=== PATIENT | male | born 1990 | race Caucasian/White ===

== ENCOUNTER 2016-05-31 12:14 | Emergency (ER) | payer SELFPAY ==
[~2016-05-31] VITALS: Ht 165.1 cm; Wt 74.6 kg
[~2016-05-31 12:14] MED LIST: ERYT1O EACH EYE; HYDR-3533 PO; IBUP800T23 PO
[2016-05-31 12:20] VITALS: BP 135/94; PULSE 104; RESP 16; TEMP 98.1; O2SAT 99
== END 2016-05-31 13:50 | disposition left against medical advice (07) ==
LOC: PHED 12:14
DX: R42 Dizziness and giddiness (principal); R50.9 Fever, unspecified; Z53.21 Procedure and treatment not carried out due to patient leaving prior to being seen by health care provider
CPT/HCPCS: 99281

== ENCOUNTER 2016-09-22 15:07 | Emergency (ER) | payer SELFPAY ==
[~2016-09-22] VITALS: Ht 167.6 cm; Wt 80.2 kg
[2016-09-22 15:11] VITALS: BP 107/73; PULSE 104; RESP 16; TEMP 99.5; O2SAT 97
[2016-09-22] MEDS ORDERED: IBUPROFEN 600 MG TAB PO ONE (15:30)
[2016-09-22] MEDS ORDERED: ACETAMINOPHEN 500 MG CPLT PO ONE (15:30)
--- NOTE | 2016-09-22 15:43 | PD ---
HPI Chief Complaint: Headache Time Seen by Provider: 15:20 Travel History International Travel<30 days: No Contact w/Intl Traveler<30days: No Traveled to known affect area: No History of Present Illness HPI This 26-year-old male is complaining of headache. He says he been having headache for the last 3 days. Pain is in both eyes and in the occipital area. He says he been feeling very tired the last day or so. He says he is not generally prone to headaches. He has not had a sore throat or cough. There's been no diarrhea. He has a history of IV drug use and has hepatitis C. He says that he had similar headaches he was first diagnosed with hepatitis C. He is on Suboxone and says he took 4 mg tablet earlier today. He says he takes on an as-needed basis. He says he has not had IV drugs for 3 months. He does not have any numbness or tingling PFSH Past Medical History Hepatitis: Yes (HEP C) Past Surgical History Other Surgery: Yes (left arm r/t injury) Social History Alcohol Use: Yes (RARELY) Tobacco Use: No Substance Use: Yes (iv drug abuse herion, dilaudid) Allergies-Medications (Allergen,Severity, Reaction): Coded Allergies: Penicillin (Verified Allergy, Intermediate, rash, 09/22/16) Reported Meds & Prescriptions Reported Meds & Active Scripts Active Ibuprofen 800 Mg Tab 800 Mg PO TID PRN Lortab 5 mg/325 mg (Hydrocodone/Acetaminophen 5 mg/325 mg) 1 Tab 1 Tab PO Q4H PRN Erythromycin Opht 0.5% Oint (Erythromycin) 0.5 % Oint 1 Applic EACH EYE QID 7 Days Instill 1/2 inch Review of Systems General / Constitutional: No: Fever, Chills Eyes: No: Diploplia HENT: Positive: Headaches, No: Lightheadedness Cardiovascular: No: Chest Pain or Discomfort, Palpitations Respiratory: No: Cough, Shortness of Breath Gastrointestinal: No: Nausea, Vomiting Genitourinary: No: Frequency, Dysuria Musculoskeletal: No: Myalgias Skin: No Rash, No Itching Neurologic: Positive: Weakness, No: Syncope, Focal Abnormalities Endocrine: No: Heat Intolerance, Cold Intolerance Hematologic/Lymphatic: No: Easy Bruising Physical Exam Narrative GENERAL: Well-developed male SKIN: Focused skin assessment warm/dry. HEAD: Atraumatic. Normocephalic. EYES: Pupils equal and round. No scleral icterus. No injection or drainage. ENT: No nasal bleeding or discharge. Mucous membranes pink and moist. NECK: Trachea midline. No JVD. CARDIOVASCULAR: Regular rate and rhythm. No murmur appreciated. RESPIRATORY: No accessory muscle use. Clear to auscultation. Breath sounds equal bilaterally. GASTROINTESTINAL: Abdomen soft, non-tender, nondistended. Hepatic and splenic margins not palpable. MUSCULOSKELETAL: No obvious deformities. No clubbing. No cyanosis. No edema. NEUROLOGICAL: Awake and alert. No obvious cranial nerve deficits. Motor grossly within normal limits. Normal speech. PSYCHIATRIC: Appropriate mood and affect; insight and judgment normal. Data Data Last Documented VS Vital Signs Date Time Temp Pulse Resp B/P Pulse Ox O2 Delivery O2 Flow Rate FiO2 09/22/16 15:29 16 100 Room Air 09/22/16 15:11 99.5 104 107/73 Orders Complete Blood Count With Diff (09/22/16 15:29) Comprehensive Metabolic Panel (09/22/16 15:29) Ct Brain W/O Iv Contrast(Rout) (09/22/16 15:29) Acetaminophen (Tylenol) (09/22/16 15:30) Ibuprofen (Motrin) (09/22/16 15:30) MDM Medical Decision Making Medical Screen Exam Complete: Yes Emergency Medical Condition: Yes Medical Record Reviewed: Yes Differential Diagnosis Differential includes hepatitis, tumor, Narrative Course CT of the brain has been read as negative. Lab work is pending. Diagnosis Primary Impression: Headache Tyson Hernandez MD Sep 22, 2016 15:43
--- NOTE | 2016-09-22 15:56 | RADHPO ---
EXAM DATE/TIME: 09/22/2016 15:35 [facility] COMPARISON: CT BRAIN W/O CONTRAST, June 14, 2015, 15:01. INDICATIONS : Cephalgia. RADIATION DOSE: 65.80 CTDIvol (mGy) MEDICAL HISTORY : Hepatitis C. SURGICAL HISTORY : None. ENCOUNTER: Initial ACUITY: 3 days PAIN SCALE: 10/10 LOCATION: Right cranial TECHNIQUE: Multiple contiguous axial images were obtained of the head. Using automated exposure control and adj ustment of the mA and/or kV according to patient size, radiation dose was kept as low as reasonably a chievable to obtain optimal diagnostic quality images. FINDINGS: CEREBRUM: The ventricles are normal for age. No evidence of midline shift, mass lesion, hemorrhage or acute in farction. No extra-axial fluid collections are seen. POSTERIOR FOSSA: The cerebellum and brainstem are intact. The 4th ventricle is midline. The cerebellopontine angle i s unremarkable. EXTRACRANIAL: The visualized portion of the orbits is intact. SKULL: The calvaria is intact. No evidence of skull fracture. CONCLUSION: 1. No evidence of acute intracranial pathology. No masses are identified. Nabeel Tapia MD on September 22, 2016 at 15:53 Board Certified Radiologist. This report was verified electronically.
[2016-09-22 16:06] LABS: AUTOMATED NEUTROPHIL # 3.4 TH/MM3 (1.8-7.7); BASOPHIL % 0.8 % (0.0-2.0); EOSINOPHIL # 0.2 TH/MM3 (0-0.4); EOSINOPHIL % 4.3 % (0.0-4.0); HEMATOCRIT 44.6 % (39.0-51.0); HEMO FLAGS DIFF FINAL; LYMPH % 26.2 % (9.0-44.0); LYMPHOCYTE # 1.4 TH/MM3 (1.0-4.8); MEAN CELL VOLUME 88.1 FL (80.0-100.0); MEAN CORPUSCULAR HGB CONC 34.1 % (32.0-36.0); MONO % 9.7 % (0.0-8.0); PLATELET COUNT 241 TH/MM3 (150-450); RED BLOOD COUNT 5.06 MIL/MM3 (4.50-5.90); RED CELL DISTRIBUTION WIDTH 11.8 % (11.6-17.2); WHITE BLOOD COUNT 5.5 TH/MM3 (4.0-11.0)
--- NOTE | 2016-09-22 16:11 | PD ---
Physical Exam Narrative Patient was seen by ED physician and signed out to me. Data Data Last Documented VS Vital Signs Date Time Temp Pulse Resp B/P Pulse Ox O2 Delivery O2 Flow Rate FiO2 09/22/16 16:31 Room Air 09/22/16 16:31 101 16 101/64 100 09/22/16 15:11 99.5 Orders Complete Blood Count With Diff (09/22/16 15:29) Comprehensive Metabolic Panel (09/22/16 15:29) Ct Brain W/O Iv Contrast(Rout) (09/22/16 15:29) Acetaminophen (Tylenol) (09/22/16 15:30) Ibuprofen (Motrin) (09/22/16 15:30) Labs Laboratory Tests Test 09/22/16 15:59 White Blood Count 5.5 TH/MM3 Red Blood Count 5.06 MIL/MM3 Hemoglobin 15.2 GM/DL Hematocrit 44.6 % Mean Corpuscular Volume 88.1 FL Mean Corpuscular Hemoglobin 30.0 PG Mean Corpuscular Hemoglobin 34.1 % Concent Red Cell Distribution Width 11.8 % Platelet Count 241 TH/MM3 Mean Platelet Volume 8.0 FL Neutrophils (%) (Auto) 59.0 % Lymphocytes (%) (Auto) 26.2 % Monocytes (%) (Auto) 9.7 % Eosinophils (%) (Auto) 4.3 % Basophils (%) (Auto) 0.8 % Neutrophils # (Auto) 3.4 TH/MM3 Lymphocytes # (Auto) 1.4 TH/MM3 Monocytes # (Auto) 0.5 TH/MM3 Eosinophils # (Auto) 0.2 TH/MM3 Basophils # (Auto) 0.0 TH/MM3 CBC Comment DIFF FINAL Differential Comment Sodium Level 137 MEQ/L Potassium Level 4.4 MEQ/L Chloride Level 101 MEQ/L Carbon Dioxide Level 29.7 MEQ/L Anion Gap 6 MEQ/L Blood Urea Nitrogen 8 MG/DL Creatinine 0.95 MG/DL Estimat Glomerular Filtration 94 ML/MIN Rate Random Glucose 104 MG/DL Calcium Level 8.8 MG/DL Total Bilirubin 0.6 MG/DL Aspartate Amino Transf 86 U/L (AST/SGOT) Alanine Aminotransferase 183 U/L (ALT/SGPT) Alkaline Phosphatase 87 U/L Total Protein 7.2 GM/DL Albumin 3.8 GM/DL MDM Supervised Visit with ANDRE: No Interpretation(s) Last Impressions Head CT 09/22/16 1529 Signed Impressions: Service Date/Time: August 15:35 - CONCLUSION: 1. No evidence of acute intracranial pathology. No masses are identified. Nabeel Tapia MD 16:10 PM. CBC within normal limit. 1628 PM. CMP within normal limit. AST 86. ALT 183. Narrative Course Patient was seen by ED physician signed out to me. Patient has history of IV drug abuse. Last IV drug abuse was with IV Suboxone a week ago. Patient denies any fever at home. Patient states that he has aching headache is diffuse over the head for the past 3 days. Patient complains of nausea today. Patient has history of migraine. Patient has history of hepatitis C. Patient denies any photophobia. Patient denies any neck stiffness. Patient denies any chest pain or shortness of breath. Patient denies abdominal pain. Patient denies any focal weakness or numbness of extremity. CT scan of brain negative acute pathology. CBC CMP within normal limit except for mildly elevated LFTs. Toradol 30 mg IV. Compazine 10 mg IV. Benadryl 25 mg IV. Patient will be discharged to follow-up with local physician. Diagnosis Primary Impression: Cephalgia Qualified Code: R51 - Nonintractable episodic headache, unspecified headache type Additional Impression: Hepatitis C infection Qualified Code: B18.2 - Chronic hepatitis C without hepatic coma Patient Instructions: General Instructions Additional Instruction: Fioricet as needed for headache. Zofran as needed for nausea. Follow-up with personal physician. Return if persistent problem or worse. Return immediately if increasing headache, stiff neck, fever, persistent vomiting. Med/Other Pt SpecificInfo: Prescription(s) given Scripts Ondansetron Odt (Zofran Odt)4 Mg Tab4 Mg SL Q6HR PRN (Nausea/Vomiting) #10 TAB Ref 0 Prov:Pritesh Self MD 09/22/16 Nwzasjfbsn-Hrropgskdozng-Wexhdeqg (Fioricet)50-300-40 Mg Cap1-2 Cap PO Q6H PRN ( HEADACHE) #20 CAP Ref 0 Prov:Pritesh Self MD 09/22/16 Disposition: 01 DISCHARGE HOME Condition: Stable Pritesh Self MD Sep 22, 2016 16:11
[2016-09-22 16:14] LABS: CHLORIDE 101 MEQ/L (98-107); POTASSIUM 4.4 MEQ/L (3.5-5.1); SODIUM (NA) 137 MEQ/L (136-145)
[2016-09-22 16:18] LABS: ANION GAP 6 MEQ/L (5-15); BICARBONATE 29.7 MEQ/L (21.0-32.0); BLOOD UREA NITROGEN 8 MG/DL (7-18)
[2016-09-22 16:21] LABS: ALT (GPT) 183 U/L (12-78); AST (GOT) 86 U/L (15-37); GLOMERULAR FILTRATION RATE 94 ML/MIN (>89)
[2016-09-22 16:23] LABS: TOTAL BILIRUBIN ADULT 0.6 MG/DL (0.2-1.0)
[2016-09-22 16:24] LABS: ALKALINE PHOSPHATASE 87 U/L (45-117)
[2016-09-22 16:31] VITALS: BP 101/64; PULSE 101; RESP 16; O2SAT 100
[2016-09-22] MEDS ORDERED: ZOFR4TAB3 SL (16:49)
[2016-09-22] MEDS ORDERED: BUTA1CAP PO (16:49)
[2016-09-22] MEDS ORDERED: KETOROLAC TROMETHAMINE 30 MG/ML (IVP) VIAL IV PUSH ONE (17:00)
[2016-09-22] MEDS ORDERED: diphenhydrAMINE HCL 50 MG/ML VIAL IV PUSH ONE (17:00)
[2016-09-22] MEDS ORDERED: PROCHLORPERAZINE INJ 10 MG/2 ML VIAL IV PUSH ONE (17:00)
== END 2016-09-22 17:33 | disposition home or self-care (01) ==
LOC: PHED 15:07
DX: R51 Headache (principal); B19.20 Unspecified viral hepatitis C without hepatic coma; F11.90 Opioid use, unspecified, uncomplicated
CPT/HCPCS: 70450; 80053; 85025; 96374; 96375; 99284; J0780; J1200; J1885

== ENCOUNTER 2016-09-28 12:36 | Emergency (ER) | payer SELFPAY ==
[~2016-09-28] VITALS: Ht 167.6 cm; Wt 75.0 kg
[~2016-09-28 12:36] MED LIST changes: +BUTA1CAP PO; +ZOFR4TAB3 SL
[2016-09-28 13:12] VITALS: BP 134/69; PULSE 71; RESP 16; TEMP 98; O2SAT 97
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
[2016-09-28] MEDS ORDERED: BACITRACIN TOP OINT 15 GM TUBE TOPICAL ONE (13:15)
[2016-09-28] MEDS ORDERED: IBUPROFEN 600 MG TAB PO ONE (13:15)
[2016-09-28 14:24] VITALS: RESP 17
== END 2016-09-28 15:10 | disposition home or self-care (01) ==
LOC: NEPD 12:36
DX: S90.02XA Contusion of left ankle, initial encounter (principal); S90.812A Abrasion, left foot, initial encounter; S80.212A Abrasion, left knee, initial encounter; S60.512A Abrasion of left hand, initial encounter; S60.414A Abrasion of right ring finger, initial encounter; V29.88XA Motorcycle rider (driver) (passenger) injured in other specified transport accidents, initial encounter; Z86.19 Personal history of other infectious and parasitic diseases
CPT/HCPCS: 99284

== ENCOUNTER 2017-02-24 14:21 | Emergency (ER) | payer SELFPAY ==
[~2017-02-24] VITALS: Ht 165.1 cm; Wt 77.0 kg
[2017-02-24 14:27] VITALS: BP 129/82; PULSE 107; RESP 16; TEMP 98.9; O2SAT 97
--- NOTE | 2017-02-24 14:40 | PD ---
HPI Chief Complaint: Cold / Flu Symptoms Time Seen by Provider: 14:35 Travel History International Travel<30 days: No Contact w/Intl Traveler<30days: No Traveled to known affect area: No History of Present Illness HPI This is a 26-year-old male with history of hepatitis C, remote history of IV drug abuse but has been clean for the past 9 months, presents requesting a note to return to work. He reports that 3 days ago he became sick at work, specifically he was having nausea and vomiting, chills and abdominal cramping. This lasted for 2 days and then resolved. Yesterday and today he has felt fine and he has been tolerating a normal diet. He's had no additional nausea or vomiting. He has had no diarrhea, no abdominal pain, no shortness of breath or chest pain. He has a slight cough which she attributes to smoking. He is here today requesting note to return to work. 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 He denies sick contacts or dietary changes. He has no other complaints at this time. [facility] Past Medical History Diminished Hearing: No Hepatitis: Yes (HEP C) Past Surgical History Other Surgery: Yes (left arm r/t injury) Social History Alcohol Use: Yes (RARELY) Tobacco Use: Yes (5 CIGS A DAY) Substance Use: No (DENIES) Allergies-Medications (Allergen,Severity, Reaction): Coded Allergies: penicillin G (Unverified Allergy, Intermediate, rash, 02/24/17) Reported Meds & Prescriptions Reported Meds & Active Scripts Active No Active Prescriptions or Reported Medications Review of Systems Except as stated in HPI: all other systems reviewed are Neg Physical Exam Narrative GENERAL: Well-developed well-nourished male in no acute distress SKIN: Warm and dry. HEAD: Atraumatic. Normocephalic. EYES: Pupils equal and round. No scleral icterus. No injection or drainage. ENT: No nasal bleeding or discharge. Mucous membranes pink and moist. NECK: Trachea midline. No JVD. CARDIOVASCULAR: Regular rate and rhythm. No murmur appreciated. RESPIRATORY: No accessory muscle use. Clear to auscultation. Breath sounds equal bilaterally. GASTROINTESTINAL: Abdomen soft, non-tender, nondistended. Hepatic and splenic margins not palpable. MUSCULOSKELETAL: No obvious deformities. No clubbing. No cyanosis. No edema. NEUROLOGICAL: Awake and alert. No obvious cranial nerve deficits. Motor grossly within normal limits. Normal speech. PSYCHIATRIC: Appropriate mood and affect; insight and judgment normal. Data Data Last Documented VS Vital Signs Date Time Temp Pulse Resp B/P (MAP) Pulse Ox O2 Delivery O2 Flow Rate FiO2 02/24/17 14:27 98.9 107 16 129/82 (98) 97 MDM Medical Decision Making Medical Screen Exam Complete: Yes Emergency Medical Condition: Yes Medical Record Reviewed: Yes Differential Diagnosis Medical clearance, resolved gastroenteritis, dehydration, pancreatitis, electrolyte abnormality, food poisoning, colitis, bowel obstruction Narrative Course This is a 26-year-old male who 3 days ago developed nausea, vomiting and abdominal cramping at work. This lasted for 2 days and then resolved. He has been asymptomatic for 2 days and is requesting a note for work. Physical examination is reassuring. Based on the history I suspect a transient gastroenteritis which has resolved. He is stable for discharge. Diagnosis Primary Impression: History of nausea and vomiting Departure Forms: Tests/Procedures, Work Release Enter return to work date: Feb 24, 2017 Additional Instructions: Stay well hydrated well-nourished, advance diet as tolerated. Follow-up with primary care physician, return for any emergent medical conditions. Med/Other Pt SpecificInfo: Prescription(s) given Scripts No Active Prescriptions or Reported Meds Disposition: 01 DISCHARGE HOME Condition: Stable Julio Plaza Feb 24, 2017 14:40
== END 2017-02-24 14:52 | disposition home or self-care (01) ==
LOC: PHEFT 14:21
DX: R11.2 Nausea with vomiting, unspecified (principal); B19.20 Unspecified viral hepatitis C without hepatic coma
CPT/HCPCS: 99281

== ENCOUNTER 2017-05-17 18:41 | Emergency (ER) | payer SELFPAY ==
[~2017-05-17] VITALS: Ht 167.6 cm; Wt 75.8 kg
[2017-05-17 18:48] VITALS: BP 132/78; PULSE 97; RESP 18; TEMP 98.4; O2SAT 98
[2017-05-17 18:59] VITALS: BP 138/80; PULSE 92; RESP 16; TEMP 98.4; O2SAT 98
--- NOTE | 2017-05-17 19:38 | PD ---
HPI Chief Complaint: Abdominal Pain Time Seen by Provider: 19:06 Travel History International Travel<30 days: No Contact w/Intl Traveler<30days: No Traveled to known affect area: No History of Present Illness HPI Patient is a 26-year-old male coming in with 10 days he said of congestion cough sore throat and abdomen pain lower. The abdominal pain is dull ache in the lower above the inguinal bilateral no radiation. He has taken Tylenol he is also taken clindamycin he had left over from a tooth infection he only had about 6 pills he says he has also taken Vicodin and he also said was left over from his tooth infection. His main complaint is congestion sore throat and abdomen pain denies seeing any other medical doctor for this illness in the ER he does not appear toxic he looks congested and has some mild erythema around his naris of his nose bilateral PFSH Past Medical History Diminished Hearing: No Hepatitis: Yes (HEP C) Influenza Vaccination: Yes ?: Not Past Surgical History Other Surgery: Yes (left arm r/t injury) Social History Alcohol Use: Yes (RARELY) Tobacco Use: Yes (5 CIGS A DAY) Substance Use: No (DENIES) Allergies-Medications (Allergen,Severity, Reaction): Coded Allergies: penicillin G (Verified Allergy, Intermediate, rash, 05/17/17) Reported Meds & Prescriptions Reported Meds & Active Scripts Active No Active Prescriptions or Reported Medications Review of Systems Except as stated in HPI: all other systems reviewed are Neg General / Constitutional: Positive: Fever, Chills Respiratory: Positive: Cough Gastrointestinal: Positive: Abdominal Pain Physical Exam Narrative GENERAL: Nontoxic appearing in no respiratory distress coughing multiple times during my exam SKIN: Warm and dry. HEAD: Atraumatic. Normocephalic. EYES: Pupils equal and round. No scleral icterus. No injection or drainage. ENT: No nasal bleeding or discharge. Mucous membranes pink and moist. NECK: Trachea midline. No JVD. CARDIOVASCULAR: Regular rate and rhythm. RESPIRATORY: No accessory muscle use. Clear to auscultation. Breath sounds equal bilaterally. GASTROINTESTINAL: Abdomen soft, non-tender, nondistended. Hepatic and splenic margins not palpable. MUSCULOSKELETAL: Extremities without clubbing, cyanosis, or edema. No obvious deformities. NEUROLOGICAL: Awake and alert. No obvious cranial nerve deficits. Motor grossly within normal limits. Five out of 5 muscle strength in the arms and legs. Normal speech. PSYCHIATRIC: Appropriate mood and affect; insight and judgment normal. Data Data Last Documented VS Vital Signs Date Time Temp Pulse Resp B/P (MAP) Pulse Ox O2 Delivery O2 Flow Rate FiO2 05/17/17 18:59 98.4 92 16 138/80 (99) 98 Room Air Orders Orders Influenzae A/B Antigen (05/17/17 19:13) Group A Rapid Strep Screen (05/17/17 19:13) Chest, Pa & Lat (05/17/17 ) Strep Culture (Group A) (05/17/17 19:19) MDM Medical Decision Making Medical Screen Exam Complete: Yes Emergency Medical Condition: Yes Differential Diagnosis Viral bronchitis versus pneumonia versus strep throat versus influenza Narrative Course Chest x-ray is negative lung exam is negative for wheeze micro-is negative for strep negative for influenza and she will be given a prescription for 7 days and Clinda and Robitussin-AC follow-up with his outpatient doctor Diagnosis Primary Impression: Viral illness Patient Instructions: Acute Cough (ED), General Instructions, Viral Syndrome ( ED) Scripts Guaifenesin-Codeine Liq (Guaifenesin AC Liq) 100-10 Mg/5 Ml Syrp 5 ML PO Q6H Y for COUGH, #60 ML 0 Refills Prov: Don Whitehead MD 05/17/17 Clindamycin (Clindamycin) 150 Mg Cap 150 MG PO Q6H for Infection for 7 Days, #28 CAP 0 Refills Prov: Don Whitehead MD 05/17/17 Disposition: 01 DISCHARGE HOME Condition: Good Don Whitehead MD May 17, 2017 19:38
[2017-05-17] MEDS ORDERED: GUAISYP4 PO (20:07)
[2017-05-17] MEDS ORDERED: CLIN150C14 PO (20:07)
--- NOTE | 2017-05-17 20:11 | RADRPT ---
EXAM DATE/TIME: 05/17/2017 19:19 [facility] COMPARISON: No previous studies available for comparison. INDICATIONS : Cough. MEDICAL HISTORY : None. SURGICAL HISTORY : None. ENCOUNTER: Initial ACUITY: 1 week PAIN SCORE: 0/10 LOCATION: chest FINDINGS: PA and lateral views of the chest demonstrate the lungs to be symmetrically aerated without evidence of mass, infiltrate or effusion. The cardiomediastinal contours are unremarkable. Osseous structure s are intact. CONCLUSION: The lungs are clear. Lopez Pryor MD on May 17, 2017 at 20:09 Board Certified Radiologist. This report was verified electronically.
== END 2017-05-17 20:21 | disposition home or self-care (01) ==
LOC: PHED 18:41
DX: B34.9 Viral infection, unspecified (principal); B19.20 Unspecified viral hepatitis C without hepatic coma; Z72.0 Tobacco use
CPT/HCPCS: 71020; 87081; 87804; 87880; 99284

== ENCOUNTER 2017-10-09 18:04 | Inpatient (IN) | payer OTHER ==
[~2017-10-09] VITALS: Ht 167.6 cm; Wt 76.2 kg
[~2017-10-09 18:04] MED LIST changes: -BUTA1CAP PO; +CLIN150C14 PO; -ERYT1O EACH EYE; +GUAISYP4 PO; -HYDR-3533 PO; -IBUP800T23 PO; -ZOFR4TAB3 SL
[2017-10-09 18:26] VITALS: BP 139/88; PULSE 92; RESP 16; TEMP 99; O2SAT 94
--- NOTE | 2017-10-09 18:34 | PD ---
HPI Chief Complaint: Psychiatric Symptoms Time Seen by Provider: 18:32 Travel History International Travel<30 days: No Contact w/Intl Traveler<30days: No Traveled to known affect area: No History of Present Illness HPI 27-year-old male presents under Monroy act initiated by a social studies department chair. According to his paperwork the patient was verbalizing suicidal ideation with plan to cut himself with a razor. He was recently discharged from [facility] where he was being treated for opiate addiction and last week he was hospitalized under Monroy act at [facility]. The patient reports that he has had passive suicidal ideation for the past 12 years. He denies any acute change in this. Denies any plan. Denies any illicit drug or alcohol use. He has been compliant with his medication regimen of Suboxone, Tegretol and Effexor. He has no other complaints at this time. [facility] Past Medical History Diminished Hearing: No Hepatitis: Yes (HEP C) Past Surgical History Other Surgery: Yes (left arm r/t injury) Social History Alcohol Use: Yes (RARELY) Tobacco Use: Yes (5 CIGS A DAY) Substance Use: No (DENIES) Allergies-Medications (Allergen,Severity, Reaction): Coded Allergies: penicillin G (Verified Allergy, Intermediate, rash, 10/09/17) Reported Meds & Prescriptions Reported Meds & Active Scripts Active Review of Systems Except as stated in HPI: all other systems reviewed are Neg Physical Exam Narrative GENERAL: Well-developed well-nourished male no acute distress SKIN: Warm and dry. Linear abrasion in the processes of healing on the left forearm. Old scars noted on the arms. HEAD: Atraumatic. Normocephalic. EYES: Pupils equal and round. No scleral icterus. No injection or drainage. ENT: No nasal bleeding or discharge. Mucous membranes pink and moist. NECK: Trachea midline. No JVD. CARDIOVASCULAR: Regular rate and rhythm. No murmur appreciated. RESPIRATORY: No accessory muscle use. Clear to auscultation. Breath sounds equal bilaterally. GASTROINTESTINAL: Abdomen soft, non-tender, nondistended. Hepatic and splenic margins not palpable. MUSCULOSKELETAL: No obvious deformities. No clubbing. No cyanosis. No edema. NEUROLOGICAL: Awake and alert. No obvious cranial nerve deficits. Motor grossly within normal limits. Normal speech. PSYCHIATRIC: Appropriate mood and affect; insight and judgment normal. Data Data Last Documented VS Vital Signs Date Time Temp Pulse Resp B/P (MAP) Pulse Ox O2 Delivery O2 Flow Rate FiO2 10/09/17 18:26 99.0 92 16 139/88 (105) 94 Orders Orders Complete Blood Count With Diff (10/09/17 18:32) Comprehensive Metabolic Panel (10/09/17 18:32) Thyroid Stimulating Hormone (10/09/17 18:32) Carbamazepine (Tegretol) (10/09/17 18:32) Psych Screen (10/09/17 18:32) Drug Screen, Random Urine (10/09/17 18:32) Alcohol (Ethanol) (10/09/17 18:32) Ziprasidone Inj (Geodon Inj) (10/09/17 20:15) Diphenhydramine Inj (Benadryl Inj) (10/09/17 20:15) Restraints Violent (10/09/17 20:15) Labs Laboratory Tests Test 10/09/17 18:40 10/09/17 18:45 10/09/17 20:39 Blood Urea Nitrogen 15 MG/DL Creatinine 0.85 MG/DL Random Glucose 75 MG/DL Total Protein 7.7 GM/DL Albumin 4.4 GM/DL Calcium Level 8.8 MG/DL Alkaline Phosphatase 85 U/L Aspartate Amino Transf (AST/SGOT) 96 U/L Alanine Aminotransferase (ALT/SGPT) 203 U/L Total Bilirubin 0.2 MG/DL Sodium Level 140 MEQ/L Potassium Level 3.7 MEQ/L Chloride Level 103 MEQ/L Carbon Dioxide Level 28.4 MEQ/L Anion Gap 9 MEQ/L Estimat Glomerular Filtration Rate 107 ML/MIN Thyroid Stimulating Hormone 3rd Gen 1.360 uIU/ML Carbamazepine (Tegretol) Level 10.0 MCG/ML Ethyl Alcohol Level LESS THAN 3 MG/DL Urine Opiates Screen NEG Urine Barbiturates Screen NEG Urine Amphetamines Screen NEG Urine Benzodiazepines Screen NEG Urine Cocaine Screen NEG Urine Cannabinoids Screen NEG White Blood Count 6.9 TH/MM3 Red Blood Count 4.90 MIL/MM3 Hemoglobin 15.1 GM/DL Hematocrit 44.2 % Mean Corpuscular Volume 90.2 FL Mean Corpuscular Hemoglobin 30.8 PG Mean Corpuscular Hemoglobin Concent 34.2 % Red Cell Distribution Width 12.9 % Platelet Count 324 TH/MM3 Mean Platelet Volume 8.2 FL Neutrophils (%) (Auto) 52.3 % Lymphocytes (%) (Auto) 34.5 % Monocytes (%) (Auto) 9.5 % Eosinophils (%) (Auto) 3.1 % Basophils (%) (Auto) 0.6 % Neutrophils # (Auto) 3.6 TH/MM3 Lymphocytes # (Auto) 2.4 TH/MM3 Monocytes # (Auto) 0.7 TH/MM3 Eosinophils # (Auto) 0.2 TH/MM3 Basophils # (Auto) 0.0 TH/MM3 CBC Comment DIFF FINAL Differential Comment MDM Medical Decision Making Medical Screen Exam Complete: Yes Emergency Medical Condition: Yes Medical Record Reviewed: Yes Differential Diagnosis Acute psychosis, schizophrenia, schizoaffective disorder, adjustment reaction Narrative Course Patient is medically cleared for psychiatric disposition Diagnosis Primary Impression: Medical clearance for psychiatric admission Julio Plaza October 09, 2017 18:34
[2017-10-09] MEDS ORDERED: ZIPRASIDONE MESYLATE 20 MG VIAL IM ONE (20:15)
[2017-10-09] MEDS ORDERED: diphenhydrAMINE HCL 50 MG/ML VIAL IM ONE (20:15)
--- NOTE | 2017-10-09 20:33 | PD ---
History of Present Illness Chief Complaint: Psychiatric Symptoms Time Seen by Provider: 20:00 Travel History International Travel<30 Days: No Contact w/Intl Traveler<30days: No Known affected area: No Legal Status Legal Status: [employer] Act History of Present Illness: History of Present Illness HPI Face to face for restraints 27-year-old male presents under Monroy act initiated by a sr. social media & mobile manager. According to his paperwork the patient was verbalizing suicidal ideation with plan to cut himself with a razor. He was recently discharged from [facility] where he was being treated for opiate addiction and last week he was hospitalized under Monroy act at [facility]. The patient reports that he has had passive suicidal ideation for the past 12 years. He denies any acute change in this. Denies any plan. Denies any illicit drug or alcohol use. He has been compliant with his medication regimen of Suboxone, Tegretol and Effexor. He has no other complaints at this time. Patient is overheard yelling in hallway. He comes to my office and demands to speak with someone.He is informed that I will speak with him his room.He continues to state that he is not going to his room. He refuses to go to his room, is pacing in the unit, talking on the phone with someone.Does not accept verbal redirection. He begins to yell loudly at me in a threatening tone and manner. He is demanding to be released from this unit. He was verbally redirected multiple times. An ETO is ordered. Patient becomes physically and verbally aggressive towards male staff as well. Patient requires restraints due to potential for injury to self as well as to other patients and to staff. PFSH Past Medical History Diminished Hearing: No Hepatitis: Yes (HEP C) Past Surgical History Other Surgery: Yes (left arm r/t injury) Psychiatric History Psychiatric History Hx Psychiatric Treatment: unable to obtain Social History Hx Alcohol Use: Yes (RARELY) Hx Tobacco Use: Yes (5 CIGS A DAY) Hx Substance Use: No (DENIES) Allergies-Medications (Allergen,Severity, Reaction): Coded Allergies: penicillin G (Verified Allergy, Intermediate, rash, 5/14/18) Reported Meds & Prescriptions Reported Meds & Active Scripts Active Mental Status Examination Appearance: Appropriate Consciousness: Alert Orientation: x4 Motor Activity: Normal gait Speech: Other (loud, yelling, verbally abusive) Language: Adequate Fund of Knowledge: Adequate Attention and Concentration: Other Memory: Unremarkable (unable to assess) Mood: Other (agitated) Affect: Other (angry) Thought Process & Associations: Intact, Logical, Goal directed Thought Content: Appropriate Hallucination Type: None Delusion Type: None MDM Medical Decision Making Medical Record Reviewed: Yes Assessment/Plan 27-year-old male presents under Monroy act initiated by a sr. social media & mobile manager. According to his paperwork the patient was verbalizing suicidal ideation with plan to cut himself with a razor. He was recently discharged from [facility] where he was being treated for opiate addiction and last week he was hospitalized under Monroy act at [facility]. The patient reports that he has had passive suicidal ideation for the past 12 years. He denies any acute change in this. Denies any plan. Denies any illicit drug or alcohol use. He has been compliant with his medication regimen of Suboxone, Tegretol and Effexor. patietn requires ETO as well as restraints due to threatening behavior, unable to follow verbal redirection, potential to harm to other patients. Orders Orders Complete Blood Count With Diff (10/09/17 18:32) Comprehensive Metabolic Panel (10/09/17 18:32) Thyroid Stimulating Hormone (10/09/17 18:32) Carbamazepine (Tegretol) (10/09/17 18:32) Psych Screen (10/09/17 18:32) Drug Screen, Random Urine (10/09/17 18:32) Alcohol (Ethanol) (10/09/17 18:32) Ziprasidone Inj (Geodon Inj) (10/09/17 20:15) Diphenhydramine Inj (Benadryl Inj) (10/09/17 20:15) Results Vital Signs Date Time Temp Pulse Resp B/P (MAP) Pulse Ox O2 Delivery O2 Flow Rate FiO2 10/09/17 18:26 99.0 92 16 139/88 (105) 94 Laboratory Tests Test 10/09/17 18:40 10/09/17 18:45 Urine Opiates Screen NEG Urine Barbiturates Screen NEG Urine Amphetamines Screen NEG Urine Benzodiazepines Screen NEG Urine Cocaine Screen NEG Urine Cannabinoids Screen NEG Diagnosis Primary Impression: Bipolar disorder Additional Impression: Substance use disorder Problem Qualifiers Primary Impression: Bipolar disorder Qualified Codes: F31.4 - Bipolar disorder, current episode depressed, severe, without psychotic features Lela Rodriguez October 09, 2017 20:33
[2017-10-09 21:17] LABS: ALBUMIN 4.4 GM/DL (3.4-5.0); ALKALINE PHOSPHATASE 85 U/L (45-117); AST (GOT) 96 U/L (15-37); BLOOD UREA NITROGEN 15 MG/DL (7-18); CALCIUM 8.8 MG/DL (8.5-10.1); CREATININE 0.85 MG/DL (0.60-1.30); GLOMERULAR FILTRATION RATE 107 ML/MIN (>89); GLUCOSE,RANDOM 75 MG/DL (74-106); TOTAL PROTEIN 7.7 GM/DL (6.4-8.2)
[2017-10-09 21:18] LABS: ALT (GPT) 203 U/L (12-78); BICARBONATE 28.4 MEQ/L (21.0-32.0); CHLORIDE 103 MEQ/L (98-107); SODIUM (NA) 140 MEQ/L (136-145); TOTAL BILIRUBIN ADULT 0.2 MG/DL (0.2-1.0)
[2017-10-09 21:55] LABS: AUTOMATED NEUTROPHIL # 3.6 TH/MM3 (1.8-7.7); BASOPHIL % 0.6 % (0.0-2.0); EOSINOPHIL # 0.2 TH/MM3 (0-0.4); EOSINOPHIL % 3.1 % (0.0-4.0); HEMATOCRIT 44.2 % (39.0-51.0); HEMOGLOBIN 15.1 GM/DL (13.0-17.0); LYMPH % 34.5 % (9.0-44.0); LYMPHOCYTE # 2.4 TH/MM3 (1.0-4.8); MEAN CELL VOLUME 90.2 FL (80.0-100.0); MEAN CORPUSCULAR HEMOGLOBIN 30.8 PG (27.0-34.0); MEAN CORPUSCULAR HGB CONC 34.2 % (32.0-36.0); MEAN PLATELET VOLUME 8.2 FL (7.0-11.0); MONO % 9.5 % (0.0-8.0); MONOCYTE # 0.7 TH/MM3 (0-0.9); NEUT % 52.3 % (16.0-70.0); PLATELET COUNT 324 TH/MM3 (150-450); RED CELL DISTRIBUTION WIDTH 12.9 % (11.6-17.2); WHITE BLOOD COUNT 6.9 TH/MM3 (4.0-11.0)
[2017-10-10 05:23] VITALS: BP 120/65; PULSE 74; RESP 18; O2SAT 97
[2017-10-10] MEDS ORDERED: LORazepam 0.5 MG TAB PO PRN (09:15)
[2017-10-10] MEDS ORDERED: cloNIDine HCL 0.2 MG TAB PO PRN (09:15)
[2017-10-10] MEDS ORDERED: LORazepam 1 MG TAB PO PRN (09:15)
[2017-10-10] MEDS ORDERED: LORazepam 2 MG/ML VIAL IM PRN ×2 (09:15)
[2017-10-10] MEDS ORDERED: ACETAMINOPHEN 325 MG TAB PO PRN (09:15)
[2017-10-10] MEDS ORDERED: ALUMINUM/MAGNESIUM/SIMETH 30 ML CUP PO PRN (09:15)
[2017-10-10] MEDS ORDERED: MAGNESIUM HYDROXIDE SUSP 30 ML CUP PO PRN (09:15)
[2017-10-10] MEDS: NICOTINE 21 MG/24 HR PATCH T-DERMAL SCH (10:00)
[2017-10-10] MEDS ORDERED: TRAZ100T10 PO (11:42)
[2017-10-10] MEDS ORDERED: VENL75TA PO (11:42)
[2017-10-10] MEDS ORDERED: TEGR200T PO (11:45)
[2017-10-10] MEDS ORDERED: suboxone PO (11:48)
[2017-10-10] MEDS: VENLAFAXINE HCL XR 75 MG CAP PO SCH (14:22)
[2017-10-10] MEDS: carBAMazepine 200 MG TAB PO SCH ×2 (14:22→21:00)
[2017-10-10 15:54] VITALS: BP 141/72; PULSE 79; RESP 19; TEMP 97.6; O2SAT 98
--- NOTE | 2017-10-10 16:50 | PD.CONS ---
HPI Service [facility] Consult Requested By Dr. Hernandez Reason for Consult Arm wound, medical management Primary Care Physician No Primary Care Physician Diagnoses: (1) Wound of left upper extremity (2) Hepatitis C (3) Elevated transaminase level History of Present Illness The patient is a 27 year old male who was brought to the ER under Monroy Act for suicidal ideation. He apparently planned to cut himself with a razor, which he has done before. He has a wound on his left forearm from previous suicide attempt. He states that the wound "broke open" when he was being detained yesterday. Minimal drainage from the wound. No bleeding. He states that he took out the sutures himself a couple days ago. He states that he is going through withdrawals. Review of Systems Constitutional: COMPLAINS OF: Fever, Chills, Night Sweats Eyes: DENIES: Blurred vision, Vision loss Ears, nose, mouth, throat: DENIES: Hearing loss Respiratory: DENIES: Cough, Wheezing, Sputum production, Shortness of breath Cardiovascular: DENIES: Chest pain, Palpitations, Dyspnea on Exertion, Lower Extremity Edema Gastrointestinal: DENIES: Abdominal pain, Constipation, Diarrhea, Nausea, Vomiting Genitourinary: DENIES: Urinary frequency, Urinary incontinence, Urgency, Hematuria, Dysuria, Nocturia Musculoskeletal: DENIES: Joint pain, Muscle aches Integumentary: DENIES: Pruritus, Rash Hematologic/lymphatic: DENIES: Bruising Neurologic: COMPLAINS OF: Tremor, DENIES: Headache Past Family Social History Allergies: Coded Allergies: penicillin G (Verified Allergy, Intermediate, rash, 10/09/17) Past Medical History Hepatitis C Past Surgical History Reconstructive surgery on left arm following injury Reported Medications Suboxone Family History Denies significant family medical history including heart disease, cancer, diabetes. Social History Smokes 5 cigarettes per day. Rare alcohol use. Denies recent illicit drug use. States that he is in recovery and takes Suboxone. Physical Exam Vital Signs Vital Signs Date Time Temp Pulse Resp B/P (MAP) Pulse Ox O2 Delivery O2 Flow Rate FiO2 10/10/17 15:54 97.6 79 19 141/72 (95) 98 10/10/17 10:30 10/10/17 05:23 74 18 120/65 (83) 97 Room Air 10/09/17 18:26 99.0 92 16 139/88 (105) 94 Physical Exam GENERAL: Well-nourished, well-developed male in no acute distress. HEENT: Normocephalic, atraumatic. Pupils equal, round and reactive. Extraocular movements intact. No scleral icterus. No injection or drainage. Oropharynx is clear. Mucous membranes are moist. CARDIOVASCULAR: Regular rate and rhythm without murmurs, gallops, or rubs. RESPIRATORY: Clear to auscultation. No wheezes, rales, or rhonchi. Breathing is non-labored. GASTROINTESTINAL: Abdomen soft, non-tender, nondistended. EXTREMITIES: No lower extremity edema. No calf tenderness. PSYCH: Alert and oriented x 3. SKIN: Linear wound on left forearm with pink granulation tissue at edges. No surrounding erythema. No pustular drainage. Laboratory Laboratory Tests Test 10/09/17 18:40 10/09/17 18:45 10/09/17 20:39 Blood Urea Nitrogen 15 Creatinine 0.85 Random Glucose 75 Total Protein 7.7 Albumin 4.4 Calcium Level 8.8 Alkaline Phosphatase 85 Aspartate Amino Transf (AST/SGOT) 96 Alanine Aminotransferase (ALT/SGPT) 203 Total Bilirubin 0.2 Sodium Level 140 Potassium Level 3.7 Chloride Level 103 Carbon Dioxide Level 28.4 Anion Gap 9 Estimat Glomerular Filtration Rate 107 Thyroid Stimulating Hormone 3rd Gen 1.360 Carbamazepine (Tegretol) Level 10.0 Ethyl Alcohol Level LESS THAN 3 Urine Opiates Screen NEG Urine Barbiturates Screen NEG Urine Amphetamines Screen NEG Urine Benzodiazepines Screen NEG Urine Cocaine Screen NEG Urine Cannabinoids Screen NEG White Blood Count 6.9 Red Blood Count 4.90 Hemoglobin 15.1 Hematocrit 44.2 Mean Corpuscular Volume 90.2 Mean Corpuscular Hemoglobin 30.8 Mean Corpuscular Hemoglobin Concent 34.2 Red Cell Distribution Width 12.9 Platelet Count 324 Mean Platelet Volume 8.2 Neutrophils (%) (Auto) 52.3 Lymphocytes (%) (Auto) 34.5 Monocytes (%) (Auto) 9.5 Eosinophils (%) (Auto) 3.1 Basophils (%) (Auto) 0.6 Neutrophils # (Auto) 3.6 Lymphocytes # (Auto) 2.4 Monocytes # (Auto) 0.7 Eosinophils # (Auto) 0.2 Basophils # (Auto) 0.0 CBC Comment DIFF FINAL Differential Comment Result Diagram: 5203810/09/17 184 Assessment and Plan Assessment and Plan 1. Suicidal ideation: Management per psychiatry. 2. Left forearm wound: This is from a prior self-inflicted razor blade wound. The patient removed the sutures himself a couple days ago. Does not appear to be actively infected. Consult wound care. Continue dressing changes. 3. Hepatitis C, elevated transaminases: Chronic. Patient has not had treatment for hep C. Follow-up as outpatient. [facility] will sign off. Reconsult if needed. Miguel Mariscal MD October 10, 2017 16:50
[2017-10-10] MEDS ORDERED: hydrOXYzine HCL 50 MG TAB PO PRN (17:00)
[2017-10-10 18:08] VITALS: BP 132/56; PULSE 76; RESP 18; TEMP 98; O2SAT 97
[2017-10-10] MEDS ORDERED: traZODone HCL 100 MG TAB PO SCH (21:00)
[2017-10-10] MEDS: BUPRENORPHINE PO SCH (21:00)
[2017-10-10] MEDS: NALOXONE PO SCH (21:00)
[2017-10-10] MEDS ORDERED: REMOVE OLD NICODERM (NICOTINE) PATCH T-DERMAL SCH (21:00)
[2017-10-11 05:48] VITALS: BP 110/74; PULSE 75; RESP 18; TEMP 97.1
[2017-10-11] MEDS: BUPRENORPHINE PO SCH (08:09)
[2017-10-11] MEDS: NALOXONE PO SCH (08:09)
[2017-10-11] MEDS: VENLAFAXINE HCL XR 75 MG CAP PO SCH (08:11)
[2017-10-11] MEDS: carBAMazepine 200 MG TAB PO SCH (08:12)
[2017-10-11] MEDS: NICOTINE 21 MG/24 HR PATCH T-DERMAL SCH (09:00)
[2017-10-11 09:15] LABS: BICARBONATE 28.8 MEQ/L (21.0-32.0); BLOOD UREA NITROGEN 16 MG/DL (7-18); CALCIUM 9.2 MG/DL (8.5-10.1); CHLORIDE 101 MEQ/L (98-107); CREATININE 1.06 MG/DL (0.60-1.30); GLOMERULAR FILTRATION RATE 83 ML/MIN (>89); GLUCOSE,RANDOM 159 MG/DL (74-106); SODIUM (NA) 137 MEQ/L (136-145)
[2017-10-11 09:16] LABS: CHOLESTEROL 196 MG/DL (120-200); TRIGLYCERIDES 120 MG/DL (42-150)
[2017-10-11 09:18] LABS: CHOLESTEROL/ HDL RATIO 5.39 RATIO; HDL CHOLESTEROL 36.3 MG/DL (40.0-60.0); LDL CHOLESTEROL 136 MG/DL (0-99)
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
[2017-10-11 15:58] LABS: HEMOGLOBIN A1C 5.4 % (4.3-6.0)
== END 2017-10-11 13:40 | disposition home or self-care (01) | DRG 882 ==
LOC: NEPJ 18:04 → NEDA 10-10 09:04 → H270 10-10 10:45
PROVIDERS: ADMIT Student in an Organized Health Care Education/Training Program; ATTEND Student in an Organized Health Care Education/Training Program
DX: F43.25 Adjustment disorder with mixed disturbance of emotions and conduct (principal); R45.851 Suicidal ideations; F11.20 Opioid dependence, uncomplicated; R74.0 Nonspecific elevation of levels of transaminase and lactic acid dehydrogenase [LDH]; B18.2 Chronic viral hepatitis C; F17.210 Nicotine dependence, cigarettes, uncomplicated; Z88.0 Allergy status to penicillin; Z78.1 Physical restraint status; Z62.810 Personal history of physical and sexual abuse in childhood; Z81.8 Family history of other mental and behavioral disorders; Z91.5 Personal history of self-harm
CPT/HCPCS: 80048; 80053; 80061; 80156; 80307; 83036; 84443; 85025; 96372; J1200; J3486